=== PATIENT | female | born 1975 | race Caucasian/White ===

== ENCOUNTER 2021-04-22 11:14 | Emergency (ER) | payer SELFPAY ==
[~2021-04-22] VITALS: Ht 170.2 cm; Wt 86.0 kg
[2021-04-22 12:23] LABS: BASOPHILS % 0.4 % (0.0-2.0); HEMATOCRIT. 33.7 % (36.0-48.0); LYMPHOCYTES % 29.4 % (20.0-50.0); MEAN CORPUSCULAR HEMOGLOBIN 26.3 pg (28.0-32.0); MEAN CORPUSCULAR VOLUME 80.8 fL (81.0-99.0); MEAN PLATELET VOLUME 8.5 fl (7.4-10.4); MONOCYTES % 7.6 % (2.0-8.0); NEUTROPHILS % 60.6 % (40.0-76.0); PLATELET 438 x1000/uL (130-400); RED BLOOD CELL COUNT 4.17 mill/uL (4.2-5.4); RED CELL DISTRIBUTION WIDTH 18.3 % (11.6-14.6)
[2021-04-22 12:26] LABS: CHLORIDE 111 mEq/L (98-107)
[2021-04-22 12:32] LABS: ETHANOL BLOOD < 10 mg/dL
[2021-04-22 20:09] LABS: CLARITY URINE CLOUDY (CLEAR); COLOR URINE YELLOW (YELLOW); KETONES URINE NEGATIVE (NEGATIVE); LEUKOCYTE ESTERASE URINE 2+ (NEGATIVE); NITRITE URINE NEGATIVE (NEGATIVE); OCCULT BLOOD URINE NEGATIVE (NEGATIVE); PROTEIN URINE NEGATIVE (NEGATIVE); SPECIFIC GRAVITY URINE 1.013 (1.005-1.030); UROBILINOGEN URINE 0.2 E.U./dL (0.2-1.0)
[2021-04-22 20:19] LABS: *AMPHETAMINES SCREEN URINE NEGATIVE (NEGATIVE); *BARBITURATES SCREEN URINE NEGATIVE (NEGATIVE); *BENZODIAZEPINES SCREEN URINE NEGATIVE (NEGATIVE); *COCAINE SCREEN URINE NEGATIVE (NEGATIVE)
[2021-04-22 20:20] LABS: CANNABINOID URINE SCREEN NEGATIVE (NEGATIVE); METHADONE URINE SCREEN NEGATIVE (NEGATIVE); OPIATES URINE SCREEN NEGATIVE (NEGATIVE); PHENCYCLIDINE URINE SCREEN NEGATIVE (NEGATIVE)
[2021-04-23] MEDS: RISPERIDONE 0.5MG TABLET PO SCH (10:00)
[2021-04-23] MEDS ORDERED: TRAZODONE HCL 50MG TABLET PO SCH (21:00)
[2021-04-23] MEDS ORDERED: RISPERIDONE 1MG TABLET PO SCH (21:00)
[2021-04-24 08:00] VITALS: BP 91/55
[2021-04-24] MEDS: RISPERIDONE 0.5MG TABLET PO SCH (09:25)
[2021-04-24] MEDS ORDERED: TRAZ-251 PO (11:27)
[2021-04-24] MEDS ORDERED: RISP05 PO (11:27)
== END 2021-04-24 12:02 | disposition home or self-care (01) ==
LOC: ER 11:14
DX: F23 Brief psychotic disorder (principal); R45.851 Suicidal ideations; R00.0 Tachycardia, unspecified; Z59.00 Homelessness unspecified
CPT/HCPCS: 36415; 80053; 80305; 80320; 81003; 84484; 85025; 87635; 93005; 99285; G0480